=== PATIENT | male | born 1965 | race Caucasian/White ===

== ENCOUNTER 2025-01-17 13:48 | Outpatient (REF) | payer OTHER, SELFPAY ==
--- OUTSIDE RECORDS SUMMARY | 2025-01-17 13:59 | XMS_ITS | Encounter Summary ---
Author Organization [employer] Address [address] [facility] [place] [address] Care Team Providers Care Orthodontist Name Role Phone Marga Donald JENNIFER Primary Care Provider [phone] Encounter Details Date Type Department Care Team (Late st Contact Info) Description 12/12/2024 Results [facility] MEDICAL [address] [place] [address] Caryn Zavala, ANN [address] [place] [address] PSA,Total [[id number]], POCT urinalysis dipstick manually resulted, Culture, Urine [[id number]], Reflex Urine Culture Social History Tobacco Use Types Packs/Day Years Used Date Smoking Tobacco: Former Cigarettes 1.5 8 0 12/11/1988 - 08/11/1996 Passive Smoke Exposure: Past Smokeless Tobacco: Never Alcohol Use Standard Drinks/Week Comments Yes 2 (1 standard drink = 0.6 oz pur e alcohol) occasionally Alcohol Answer Date Recorded How often do you have a drink containing alcohol ? 3 12/11/2024 Average Number of Drinks Not on file 025 How often do you have six or more drinks on one occasion? 0 12/11/2024 Housing Stability Answer Date Recorded What is your housing situation today? I have gus almeida 12/23/[address] you li ve. Do you have problems with any of the following? None of the above 12/23/2023 Food Insecurity Answer Date Recorded Within the past 12 months, y ou worried that your food would run out before you got money to buy more: Never True 12/23/2023 Within the past 12 months,th e food you bought just didn't last and you didn't have enough money to get more: Never True 05/2024 Transportation Answer Date Recorded In the past 12 months, has l ack of transportation kept you from medical appts, meetings, work or from getting things needed for daily living? No 12/23/2023 Intimate Partner Violence Answer Date R ecorded Within the last year, have y ou been afraid of your partner or ex-partner? 2 06/01/2023 Within the last year, have y ou been humiliated or emotionally abused in other ways by your partner or ex-partner? 2 Within the last year, have y ou been kicked, hit, slapped, or otherwise physically hurt by your partner or ex-partner? 2 06/01/2023 Within the last year, have y ou been raped or forced to have any kind of sexual activity by your partner or ex-partner? 2 06/01/2023 Utilities Answer Date Recorded In the past 12 months, has t he electric, gas, oil or water company threatened to shut off services in your home? No 12/23/2023 Depression Answer Date Recorded Patient Health Questionnaire-2 Score 0 12/11/2024 Internet Access Answer Date Recorded Internet Access Q1 Yes 02/10/2024 Internet Access Q2 Not on file 02/10/2024 Education Answer Date Recorded What is the highest level of school you have completed or the highest degree you have received? Bachelor's degree (e.g., BA, AB, BS) 06/19/2024 Sex and Gender Information Value Date Recorded Sex Assigned at Male 07/21/2022 9:26 AM EST Legal Sex Male 8:39 PM EDT Gender Identity Male 07/21/2022 9:26 AM EST Sexual Orientation Straight 07/21/2022 9: 26 AM EST Occupation Industry Job Start Date Job End Date [employer] Not on file Not on file Not on file documented as of this encounter Plan of Treatment Not on file documented as of this encounter Visit Diagnoses Not on filedocumented in this encounter Care Teams Orthodontist Relationship Specialty Start Date End Date Marga Donald FNP [address] [place] [address] PCP - General Family Medicine 12/22/22 documented as of this encounter
--- OUTSIDE RECORDS SUMMARY | 2025-01-17 13:59 | XMS_ITS | Clinical Summary ---
Author Organization [facility] Address [address] [place] [id number] Phone Care Team Providers Care Pharmaceutical Service Representative Name Role Phone Marga Donald [facility] Primary Care Provider [phone] Allergies Active Allergy Reactions Criticality Noted Date Comments Aspirin Unknown 03/25/2011 Ibuprofen Unknown 03/25/2011 Active Problems Problem Noted Date Diagnosed Date Hypercholesterolemia 03/25/2011 Overview (08/03/2014): Hypercholesterolemia Environmental allergies 03/25/2011 Overview (08/03/2014): ALLERGIES Social History Tobacco Use Types Packs/Day Years Used Date Smoking Tobacco: Never Assessed Education Answer Date Recorded Are you interested in more education? Not on ирина e 10/17/2022 Are you concerned about learning? Not on file 10/17/2022 No 10/17/2022 No 10/17/2022 Digital Access Answer Date Recorded No 11/07/2022 No 11/07/2022 No 11/07/2022 Reliable internet access at home? Not on file 11/07/2022 Device with a working camera? Not on file Sex and Gender Information Value Date Recorded Sex Assigned at Not on file Legal Sex Male 6:12 PM EST Gender Identity Not on file Sexual Orientation Not on file Plan of Treatment Health Maintenance Due Date Last Done Comments LIPID PANEL 1965 DEPRESSION SCREENING 1977 SMOKING Hx and SMOKELESS TOBACCO SCREENING 1978 HEPATITIS C SCREENING 11/17/1983 HIV ONE-TIME SCREENING (18-6 5 YEARS) 11/17/1983 COLOGUARD 2010 COLONOSCOPY 2010 COLORECTAL CANCER SCREENING 2010 FIT TEST 2010 FOBT 2010 SIGMOIDOSCOPY 2010 VIRTUAL COLONOSCOPY 2010 PNEUMOCOCCAL VACCINES (50+ years) (1 of 1 - PCV) 11/17/2015 ZOSTER VACCINES (1 of 2) 11/17/2015 COVID-19 VACCINE (2 - 2023-2 5 season) 2024 09/29/2020 Adult Td,Tdap Booster 05/04/2030 05/04/2020 , 08/18/2017 HEPATITIS A VACCINES Aged Out No long er eligible based on patient's age to complete this topic HIB VACCINES Aged Out No longer eligi ble based on patient's age to complete this topic MENINGOCOCCAL VACCINES (ACWY) Aged Out No longer eligible based on patient's age to complete this topic MENINGOCOCCAL VACCINES (B) Aged Out N o longer eligible based on patient's age to complete this topic Medical Devices Not on file [facility] [place] [id number] [place] [phone] [place] [address] Care Teams Pharmaceutical Service Representative Relationship Specialty Start Date End Date Marga Donald FNP PCP - General Nurse Practitioner 06/21/23 Additional Source Comments The information contained in this document represents components of the legal health record. It is not the complete legal health record.[facility]
== END 2025-01-17 13:49 | disposition home or self-care (01) ==
LOC: HO.SH 13:48
PROVIDERS: Visit Provider Family Medicine
DX: Z01.118 Encounter for examination of ears and hearing with other abnormal findings (principal); H90.3 Sensorineural hearing loss, bilateral
CPT/HCPCS: 92557; 92567